=== PATIENT | male | born 1995 | race Caucasian/White ===

== ENCOUNTER 2021-08-15 12:45 | Outpatient (REF) | payer BC, SELFPAY | END 2021-08-15 12:46 | disposition home or self-care (01) | LOC: HO.LAB 12:45 | PROVIDERS: Visit Provider Internal Medicine | DX: Z20.822 Contact with and (suspected) exposure to COVID-19 (principal) | CPT/HCPCS: C9803; U0003; U0005 ==

== ENCOUNTER 2023-04-20 06:07 | Emergency (ER) | payer OTHER, SELFPAY ==
--- NOTE | ~2023-04-20 | XR_ITS ---
EXAMINATION: XR LUMBOSACRAL SPINE CLINICAL INFORMATION: Right leg paresthesia COMPARISON: None available. TECHNIQUE: Three views of the lumbosacral spine. FINDINGS: The vertebral bodies and posterior elements are normal. The disc spaces are preserved and the vertebral alignment is normal. The paraspinal soft tissues are normal. XR/XR lumbar spine 2-3V IMPRESSION: Unremarkable lumbar spine examination.
--- NOTE | 2023-04-20 06:12 | ED.OVERDOSE ---
HPI - Overdose General Chief Complaint: Overdose Stated Complaint: OD Source: patient Mode of arrival: EMS History of Present Illness HPI Narrative: 27-year-old male who arrives via EMS, he reports that he purchased his oxy from the same person that he usually does, states he uses on a regular basis but family found him unresponsive and administered 4 mg of Narcan. He denies any suicidal homicidal ideation, and although he wishes for detox he states that he can not at this time. Related Data Allergies Allergy/AdvReac Type Severity Reaction Status Date / Time No Known Allergies Allergy Unverified 08/09/20 19:14 [No Known Allergies*] Review of Systems Review of Systems: Pertinent positives and negatives as stated in HPI PMFSH Past Medical History Source: nursing notes reviewed Social History Social History Alcohol intake: current Alcohol intake frequency: a few times a week Use of substances other than those prescribed or required for medical reasons: Yes Substance Use Type: Marijuana, Opiates and Painkillers Substance Use Frequency: Daily Advance Directives: No Advance Directives Information Provided: No Physical Exam Vital Signs: Vital Signs: Last Vital Signs Temp 97.6 F 04/20/23 06:22 Pulse 104 H 04/20/23 06:22 Resp 16 04/20/23 06:22 BP 136/86 04/20/23 06:22 Pulse Ox 98 04/20/23 06:22 O2 Del Method Room Air 04/20/23 06:22 BMI result Body Mass Index 24.6 VITAL SIGNS: Reviewed. GENERAL: Well developed, well nourished, in no acute distress. HEAD: Normocephalic/atraumatic EYES: PERRLA, EOMI EARS: Ext canals without abnormality NOSE: Nares patent bilateral OROPHARYNX: no oral lesions noted, posterior pharynx clear NECK: Supple, no adenopathy LUNGS: Normal breath sounds. No adventitious sounds or accessory muscle use. SpO2<98> CARDIOVASCULAR: Regular rate and rhythm without noted murmurs ABDOMEN: Soft, non-tender, non-distended with bowel sounds. MUSCULOSKELETAL: No tenderness, deformities, or effusions noted on gross inspection. EXTREMITIES: No cyanosis, clubbing or edema. SKIN: Inspection of the skin reveals no rashes NEUROLOGIC: Alert and oriented x 4. Strength and sensation to light touch were grossly intact x 4. Medical Decision Making Medical Decision Making MDM Narrative: 27-year-old male with accidental overdose requiring 4 mg of Narcan with good reversal, patient also received 4 mg of Zofran with good result. Patient is tolerating p.o. and will be discharged with home Narcan. Patient placed in physician observation because the patient needed more time for observation and JAK eval. At the time observation was started the patient's vital signs were stable, patient is alert and oriented, neuro: Nonfocal, CV RRR, lungs clear Differential Diagnosis Please see the discussion above Lab Data Please see the discussion above Labs: Lab Results 04/20/23 Range/Units 06:35 Urine Color Yellow Urine Appearance Clear Urine pH 5.5 (5.0-9.0) Ur Specific [place] 1.010 (1.005-1.025) Urine Protein Trace (Neg-Trace) mg/dL Urine Glucose (UA) Negative (Negative) mg/dL Urine Ketones Negative (Negative) mg/dL Urine Blood Negative (Negative) Urine Nitrite Negative (Negative) Ur Leukocyte Esterase Trace H (Negative) Discharge Plan Discharge Clinical Impression: Drug overdose Patient Disposition: Still a Patient Instructions: Adult Overdose (ED) Additional Instructions: Follow-up with primary care provider and return to the ER for any worsening symptoms.
[2023-04-20 06:18] VITALS: BP 136/83; PULSE 113; O2SAT 100
[2023-04-20 06:19] VITALS: BP 136/86; PULSE 104; RESP 16; TEMP 36.4; O2SAT 98; BMI 24.6
[2023-04-20 06:22] VITALS: BP 136/86; PULSE 104; RESP 16; TEMP 36.4; O2SAT 98
--- NOTE | 2023-04-20 06:27 | PC.NURSE ---
Pt presents to ER via EMS. family found pt unresponsive in his car outside of their home. Pt reported he took 60-90mg oxycodone around midnight and does not remember going unresponsive. Pt stated he takes unprescribed oxycodone every day. Pt was also drinking alcohol last night. Family gave 4mg narcan on scene and pt woke up. EMS administered zofran for nausea. Pt presented A&Ox4, GCS 15. Reports no pain or nausea at this time. Pt ambulated to the bathroom with steady gait.
[2023-04-20 06:42] LABS: Appearance Urine Clear; Color Urine Yellow; Glucose Urine UA Negative (Negative); Leukocyte Esterase Urine Trace (Negative); Nitrite Urine Negative (Negative); PH 5.5 (5.0-9.0); UMIC TRIGGER UACC YES; Urine Blood Negative (Negative); Urine Ketones Negative (Negative); Urine Protein Trace mg/dL (Neg-Trace)
[2023-04-20 06:52] LABS: Bacteria Urine None Seen (None Seen); Granular Casts Urine Present; RBC Urine 0-2 /HPF (0-2); UACC Culture Trigger YES
[2023-04-20 06:53] LABS: Amphetamine Screen Urine Not Detected (Not Detect); Barbiturates, Urine Not Detected (Not Detect); Benzodiazepines Screen Urine Not Detected (Not Detect); Cannabinoid Screen Urine Not Detected (Not Detect); Cocaine Screen Urine Not Detected (Not Detect); Fentanyl, urine POSITIVE (Not Detect); Opiate Screen Urine POSITIVE (Not Detect); Phencyclidine Screen Urine Not Detected (Not Detect)
[2023-04-20 10:10] VITALS: BP 134/80; PULSE 79; RESP 18; TEMP 36.8; O2SAT 97
--- NOTE | 2023-04-20 10:38 | HO.ADDICTCON ---
History of Present Illness Date of Service: 04/20/2023 Chief Complaint: OD Reason for Consult: overdose Sources of Information: patient interviewed and chart reviewed Additional Sources of Information: patient's father HPI Narrative: Patient is a 27 year old male who presented to [facility] via ambulance following opioid overdose requiring narcan. Patient seen in room 4 of ED, father present during interview (per patient's request). He reports he has been using 3-4 30mg percocets daily for almost a year now. Percocets are not prescribed, and likely pressed pills as UDS +fentanyl. He reports this is his 2nd overdose, previous one was a little over a year ago, which resulted in inpatient treatment. He was started on bupre and ultimately transitioned over to naltrexone/vivtrol at time of discharge. He states he recieved a total of 2 injections and began to use again shortly after that. Age of first use, 18. Daily use started approx 5 years ago. Identifies alcohol as a major trigger and precipitant to using. Working FT. Supportive family. Lives with his father --who found him this morning and administered narcan. 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 Discussed patients goals regarding current use. He stated that he wants to stop completely . Declines ATS referral for admission. Discussed MOUD, patient interested in restarting suboxone. He felt this medication helped the most with cravings and physical sx of withdrawal. At time of interview patient reporting nausea and anxiety. No other withdrawal sx reported or visible. Still appearing a bit drowsy as his eyes closed a few times during interview. He is c/o numbness and tingling in his right leg. Review of Systems Constitutional: Reports as per HPI Diagnostics Vital Signs (24Hr): Vital Signs - 24 hr 04/20/23 06:19 04/20/23 06:22 04/20/23 10:10 Temperature 97.6 F 97.6 F 98.2 F Pulse Rate 104 H 104 H 79 Respiratory Rate 16 16 18 Blood Pressure 136/86 136/86 134/80 Pulse Oximetry 98 98 97 Oxygen Delivery Method Room Air Room Air Room Air BMI result Body Mass Index 24.6 Labs Labs: Laboratory Results - last 48 hr 04/20/23 04/20/23 06:35 06:35 Urine Color Yellow Urine Appearance Clear Urine pH 5.5 Ur Specific [place] 1.010 Urine Protein Trace Urine Glucose (UA) Negative Urine Ketones Negative Urine Blood Negative Urine Nitrite Negative Ur Leukocyte Esterase Trace H Urine RBC 0-2 Urine WBC 6-10 H Ur Squamous Epith Cells 3-5 Urine Bacteria None Seen Hyaline Casts 11-20 Granular Casts Present Urine Opiates Screen POSITIVE H Urine Fentanyl Screen POSITIVE H Ur Barbiturates Screen Not Detected Ur Phencyclidine Scrn Not Detected Ur Amphetamines Screen Not Detected U Benzodiazepines Scrn Not Detected Urine Cocaine Screen Not Detected U Marijuana (THC) Screen Not Detected Imaging Radiology Impressions: ITS Impressions Lumbar Spine X-Ray 04/20/23 09:00 IMPRESSION: Unremarkable lumbar spine examination. Mental Status Exam Mental Status Exam Patient Appearance: Appropriate Level of Consciousness: Awake and Drowsy (slightly ) Patient Behavior: Cooperative and Anxious Affect Description: Anxious Judgement: Fair Medications Allergies Allergies Allergy/AdvReac Type Severity Reaction Status Date / Time No Known Allergies Allergy Unverified 08/09/20 19:14 [No Known Allergies*] Assessment & Plan Assessment & Plan (1) Opioid use disorder: Status: Acute Code(s): F11.90 - Opioid use, unspecified, uncomplicated Assessment and Plan: suboxone 8mg rx to be sent to pharmacy for 8mg daily appt scheduled at [facility] for intake and continuation of treatment on 04/22 at 2pm take home narcan already ordered father provided with [employer] [place] recovery support overdose prevention reinforced with patient. (2) Drug overdose: Status: Acute Code(s): T50.901A - Poisoning by unspecified drugs, medicaments and biological substances, accidental (unintentional), initial encounter Total time managing care of this patient today ____ minutes. [facility] Social History Social History Alcohol intake: current Alcohol intake frequency: a few times a week Use of substances other than those prescribed or required for medical reasons: Yes Substance Use Type: Marijuana, Opiates and Painkillers Substance Use Frequency: Daily Advance Directives: No Advance Directives Information Provided: No
[2023-04-20] MEDS: Naloxone HCl Nasal TAKE HOME 4 MG SPRAY NOSTRILALT (11:17)
== END 2023-04-20 11:21 | disposition home or self-care (01) ==
PROVIDERS: Student in an Organized Health Care Education/Training Program; Emergency Provider Emergency Medicine
DX: T40.2X1A Poisoning by other opioids, accidental (unintentional), initial encounter (principal); M54.50 Low back pain, unspecified; Y92.9 Unspecified place or not applicable; Z79.899 Other long term (current) drug therapy
CPT/HCPCS: 72100; 80307; 81001; 87086; 99284; 99285

== ENCOUNTER → 2023-04-22 15:17 | Outpatient (BNVA) | payer OTHER, SELFPAY | PROVIDERS: Visit Provider Nurse Practitioner Psychiatric/Mental Health ==

== ENCOUNTER → 2023-04-29 15:29 | Outpatient (BNVA) | payer OTHER, SELFPAY | PROVIDERS: Visit Provider Nurse Practitioner Psychiatric/Mental Health ==

== ENCOUNTER → 2023-05-06 15:16 | Outpatient (BNVA) | payer OTHER, SELFPAY | PROVIDERS: Visit Provider Nurse Practitioner Psychiatric/Mental Health | DX: F11.20 Opioid dependence, uncomplicated (principal); F10.20 Alcohol dependence, uncomplicated; Z79.899 Other long term (current) drug therapy; Z51.81 Encounter for therapeutic drug level monitoring | CPT/HCPCS: 80305 ==

== ENCOUNTER → 2023-05-13 15:13 | Outpatient (BNVA) | payer OTHER, SELFPAY | PROVIDERS: Visit Provider Nurse Practitioner Psychiatric/Mental Health | DX: Z51.81 Encounter for therapeutic drug level monitoring (principal); F10.20 Alcohol dependence, uncomplicated; Z79.899 Other long term (current) drug therapy | CPT/HCPCS: 80305 ==

== ENCOUNTER → 2023-05-18 16:26 | Outpatient (BNVA) | payer OTHER, SELFPAY | PROVIDERS: Visit Provider Nurse Practitioner Psychiatric/Mental Health | DX: Z51.81 Encounter for therapeutic drug level monitoring (principal) ==

== ENCOUNTER 2023-05-29 15:09 | Outpatient (AMB) | payer OTHER, SELFPAY ==
--- NOTE | 2023-05-29 15:14 | MHC.OFFVIS ---
Intake Vital Signs 05/29/23 15:20 BP 114/80 Blood Pressure Location Lt brachial Pulse 84 Pulse Source Pulse Oximeter Pulse Oximetry (%) 96 Oxygen Delivery Method Room Air Intake Visit Reasons: mat visit Intake Note: the patient presents for a sub inj. 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 Patient verbalized understanding Discussed SSRI to address ROSSY sx, patient agreeable. Reviewed dosing, side effects, goals of treatment. [facility] Social History Alcohol intake: current Alcohol intake frequency: a few times a week Substance Use Type: Marijuana, Opiates and Painkillers Review of Systems Const Reports as per HPI and Reports no additional complaints Physical Exam Vital Signs: Last Vital Signs Pulse 84 05/29/23 15:20 BP 114/80 05/29/23 15:20 Pulse Ox 96 05/29/23 15:20 Oxygen Delivery Method Room Air 05/29/23 15:20 Const General: cooperative, healthy appearing, no acute distress and alert Nutritional Appearance: average body habitus Orientation/consciousness: patient oriented x3 Limitations: no limitations Neuro General: patient oriented x3 Psych Appearance: grossly normal Mental Status: mental status grossly normal Speech and movement: Normal speech and movement present Affect: Anxious affect present Attitude: cooperative Thought process: Normal thought process present Thought content: Normal thought content present Insight: Good insight present (Psych) Judgement: Good judgement present (Psych) Office Meds Sublocade ER Performing Provider: Josselin Avila CNP Administered by: Shayna Buckley RN on 05/29/23 16:01 Dose Route Admin Location Lot Number Expiration Date NDC Seismic Survey Assistant 300 mg subcut RLQ [id number] 09/21/24 [address]-8 [employer] Comments: T/W reviewed most common reactions to Sublocade, reviewed if withdrawal s/s experienced, call CCC, can prescribe supplemental films. Reviewed to monitor for intolerable pain, swelling, redness, exudate, heat at INJ site, call the CCC. Pt verbalized understanding. Reviewed aftercare, no heat/ice, no picking at INJ site, to be left alone. Pt verbalized understanding. T/W used Lidocaine at INJ site, pt tolerated injection. Assessment & Plan Assessment & Plan (1) Opioid use disorder: Code(s): F11.90 - Opioid use, unspecified, uncomplicated Plan: tolerated injection follow up 4 weeks lexapro 5mg QD (2) Alcohol use disorder, severe, dependence: Code(s): F10.20 - Alcohol dependence, uncomplicated Plan: continue campral Orders: Orders AMB Buprenorphine Injection - Patient Supplied 05/29/23 F11.90 - Opioid use, unspecified, uncomplicated Medications: New escitalopram oxalate (Lexapro) 5 mg PO DAILY 30 tabs 0RF Coding Level of Care Code Est Pt Level 4 (62507) Diagnoses Opioid use disorder F11.90 Alcohol use disorder, severe, dependence F10.20
[2023-05-29 15:20] VITALS: BP 114/80; PULSE 84; O2SAT 96
== END 2023-05-29 16:06 | disposition home or self-care (01) ==
PROVIDERS: Visit Provider Nurse Practitioner Psychiatric/Mental Health
DX: F11.90 Opioid use, unspecified, uncomplicated (principal); F10.20 Alcohol dependence, uncomplicated
CPT/HCPCS: 99214

== ENCOUNTER → 2023-05-29 15:09 | Outpatient (BNVA) | payer OTHER, SELFPAY | PROVIDERS: Visit Provider Nurse Practitioner Psychiatric/Mental Health | DX: F11.20 Opioid dependence, uncomplicated (principal); F10.20 Alcohol dependence, uncomplicated | CPT/HCPCS: 96372 ==

== ENCOUNTER 2023-07-03 13:11 | Outpatient (AMB) | payer OTHER, SELFPAY ==
--- NOTE | 2023-07-03 13:12 | MHC.OFFVIS ---
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 Expressing some guilt over this--has avoided going to his AA meetings because he was due to get his 2 month chip Reviewed strategies to avoid isolation Tolerating Lexapro. Feels less anxious and not ruminating as much Dose to be increased to 10mg PFSH Social History Alcohol intake: current Alcohol intake frequency: a few times a week Substance Use Type: Marijuana, Opiates and Painkillers Review of Systems Const Reports as per HPI and Reports no additional complaints Physical Exam Vital Signs: Last Vital Signs Pulse 80 07/03/23 13:19 BP 134/82 07/03/23 13:19 Pulse Ox 97 07/03/23 13:19 Oxygen Delivery Method Room Air 07/03/23 13:19 Const General: cooperative, healthy appearing, no acute distress and alert Nutritional Appearance: average body habitus Orientation/consciousness: patient oriented x3 Limitations: no limitations Neuro General: patient oriented x3 Psych Appearance: grossly normal Mental Status: mental status grossly normal Speech and movement: Normal speech and movement present Affect: Anxious affect present Attitude: cooperative Thought process: Normal thought process present Thought content: Normal thought content present Insight: Good insight present (Psych) Judgement: Good judgement present (Psych) Office Meds Sublocade ER Performing Provider: Josselin Avila CNP Administered by: More Glynn RN on 07/03/23 13:58 Dose Route Admin Location Lot Number Expiration Date [place] Rubber Mill Tender 300 mg subcut LLQ [id number] 12/22/24 [address]-9 [employer]. Comments: Pt in for Sublocade, no s/sx of infection, no redness, swelling, warmth or drainage to previous inj site. Pt tolerated inj well, educated on signs and symptoms of infection and encouraged to call office with any questions. Results AMB 14 Panel Urine Drug Screen Urine Marijuana (THC) Negative Last Edit by Raquel Cisneros CMA on 07/03/23 13:21 Urine Cocaine Negative Last Edit by Raquel Cisneros CMA on 07/03/23 13:21 Urine Morphine Negative Last Edit by Raquel Cisneros CMA on 07/03/23 13:21 Urine Methamphetamine Negative Last Edit by Raquel Cisneros CMA on 07/03/23 13:21 Urine Amphetamine Negative Last Edit by Raquel Cisneros CMA on 07/03/23 13:21 Urine Benzodiazepine Negative Last Edit by Raquel Cisneros CMA on 07/03/23 13:21 Urine Barbiturates Negative Last Edit by Raquel Cisneros CMA on 07/03/23 13:21 Urine Methadone Negative Last Edit by Raquel Cisneros CMA on 07/03/23 13:21 Urine Buprenorphine Positive Last Edit by Raquel Cisneros CMA on 07/03/23 13:21 Urine Tricyclic Antidepressant Positive Last Edit by Raquel Cisneros CMA on 07/03/23 13:21 Urine MDMA Negative Last Edit by Raquel Cisneros CMA on 07/03/23 13:21 Urine Oxycodone Negative Last Edit by Raquel Cisneros CMA on 07/03/23 13:21 Urine Phencyclidine Negative Last Edit by Raquel Cisneros CMA on 07/03/23 13:21 Urine Propoxyphene Negative Last Edit by Raquel Cisneros CMA on 07/03/23 13:21 Results Reviewed Results Reviewed: Laboratory Last Values POC Urine Buprenorphine Positive 07/03/23 13:13 POC Urine Morphine Negative 07/03/23 13:13 POC Urine Oxycodone Negative 07/03/23 13:13 POC Urine Methadone Negative 07/03/23 13:13 POC Urine Propoxyphene Negative 07/03/23 13:13 POC Urine Barbiturates Negative 07/03/23 13:13 POC U Tricyclic Antidpr Positive 07/03/23 13:13 POC Urine PCP Negative 07/03/23 13:13 POC Ur Amphetamines Negative 07/03/23 13:13 POC Ur Methamphetamine Negative 07/03/23 13:13 POC Urine MDMA Negative 07/03/23 13:13 POC Ur Benzodiazepine Negative 07/03/23 13:13 POC Urine Cocaine Negative 07/03/23 13:13 POC Ur Marijuana (THC) Negative 07/03/23 13:13 Assessment & Plan Assessment & Plan (1) Opioid use disorder: Code(s): F11.90 - Opioid use, unspecified, uncomplicated Plan: tolerated injection follow up 4 weeks lexapro 10mg QD (2) Alcohol use disorder, severe, dependence: Code(s): F10.20 - Alcohol dependence, uncomplicated Plan: continue campral Orders: Orders AMB Buprenorphine Injection - Patient Supplied Today F11.90 - Opioid use, unspecified, uncomplicated AMB 14 Panel Urine Drug Screen Today Z51.81 - Encounter for therapeutic drug level monitoring Medications: Discontinued escitalopram oxalate (Lexapro) Discontinued Reason: Doctor's Order 5 mg PO DAILY 30 tabs 0RF Coding Level of Care Code Est Pt Level 4 (44938) Diagnoses Opioid use disorder F11.90 Alcohol use disorder, severe, dependence F10.20
[2023-07-03 13:19] VITALS: BP 134/82; PULSE 80; O2SAT 97
== END 2023-07-03 14:28 | disposition home or self-care (01) ==
LOC: HO.HCC 13:11
PROVIDERS: Visit Provider Nurse Practitioner Psychiatric/Mental Health
DX: F11.90 Opioid use, unspecified, uncomplicated (principal); F10.20 Alcohol dependence, uncomplicated; Z51.81 Encounter for therapeutic drug level monitoring
CPT/HCPCS: 99214; Q9992

== ENCOUNTER → 2023-07-03 13:11 | Outpatient (BNVA) | payer OTHER, SELFPAY | PROVIDERS: Visit Provider Nurse Practitioner Psychiatric/Mental Health | DX: F11.20 Opioid dependence, uncomplicated (principal); F10.20 Alcohol dependence, uncomplicated; Z51.81 Encounter for therapeutic drug level monitoring; Z79.899 Other long term (current) drug therapy | CPT/HCPCS: 80305; 96372 ==

== ENCOUNTER 2023-07-31 15:10 | Outpatient (AMB) | payer OTHER, SELFPAY ==
[2023-07-31 15:23] VITALS: BP 120/70; PULSE 73; O2SAT 96
--- NOTE | 2023-07-31 15:26 | A.OFFVIS_ITS ---
Intake Vital Signs 07/31/23 15:23 BP 120/70 Blood Pressure Location Lt radial Position Sitting Pulse 73 Pulse Source Pulse Oximeter Pulse Oximetry (%) 96 Oxygen Delivery Method Room Air Intake Visit Reasons: Sub Inj Allergies No Known Allergies [No Known Allergies*] Allergy (Unverified 07/31/23 15:23) HPI Sub Inj HPI Details Patient presents for follow up Was scheduled to have sublocade injection, however he did nto provide consent for delivery so injection is not here . Poor eye contact, soft spoken, reporting recurrence of use. Alcohol, cocaine and pills (unclear if pressed or not) Reviewed contributing factors to use--alcohol always comes first patient. While he has strong family supports, he does not lean on them regarding substance use. Isolates--reports having difficulty socialzing in a setting that does not include alcohol--does not have peers who do not drink. Patient expressing that he wants to increase visits and is seeking support that is not group based. Open to a cryolite recovery operator. [facility] Social History Alcohol intake: current Alcohol intake frequency: a few times a week Substance Use Type: Marijuana, Opiates and Painkillers Review of Systems Const Reports as per HPI Physical Exam Vital Signs: Last Vital Signs Pulse 73 07/31/23 15:23 BP 120/70 07/31/23 15:23 Pulse Ox 96 07/31/23 15:23 Oxygen Delivery Method Room Air 07/31/23 15:23 Const General: cooperative and comfortable Psych Appearance: well kempt Speech and movement: Clear speech present (soft spoken) Affect: Depressed mood present Attitude: cooperative and Avoids eye contact (attititude/behavior) Thought process: Normal thought process present Thought content: Depressive thoughts present Insight: Good insight present (Psych) Judgement: Fair judgement present (Psych) Assessment & Plan Assessment & Plan (1) Opioid use disorder: Code(s): F11.90 - Opioid use, unspecified, uncomplicated Plan: * restart films * risk reduction and overdose prevention discussion (2) Alcohol use disorder, severe, dependence: Code(s): F10.20 - Alcohol dependence, uncomplicated Plan: * continue campral * follow up one week * referral to cryolite recovery operator to be placed Medications: Changed From buprenorphine-naloxone 8-2 mg (Suboxone) 1 film sublingual DAILY PRN 10 ea 0RF withdrawal symptoms To buprenorphine-naloxone 8-2 mg (Suboxone) 1 film sublingual DAILY 8 ea 0RF Coding Level of Care Code Est Pt Level 4 (41136) Diagnoses Opioid use disorder F11.90 Alcohol use disorder, severe, dependence F10.20
== END 2023-07-31 15:36 | disposition home or self-care (01) ==
PROVIDERS: Visit Provider Nurse Practitioner Psychiatric/Mental Health
DX: F11.90 Opioid use, unspecified, uncomplicated (principal); F10.20 Alcohol dependence, uncomplicated
CPT/HCPCS: 99214

== ENCOUNTER → 2023-07-31 15:10 | Outpatient (BNVA) | payer OTHER, SELFPAY | PROVIDERS: Visit Provider Nurse Practitioner Family | DX: F11.90 Opioid use, unspecified, uncomplicated (principal); Z51.81 Encounter for therapeutic drug level monitoring ==

== ENCOUNTER 2023-08-07 15:17 | Outpatient (AMB) | payer OTHER, SELFPAY ==
--- NOTE | 2023-08-07 15:18 | A.OFFVIS_ITS ---
Intake Vital Signs 08/07/23 15:21 BP 136/78 Blood Pressure Location Lt radial Pulse 68 Pulse Source Pulse Oximeter Pulse Oximetry (%) 95 Oxygen Delivery Method Room Air Comment just had caffeine Intake Visit Reasons: MAT Visit Intake Note: the patient presents for a mat visit Family Physician Required: No Allergies No Known Allergies [No Known Allergies*] Allergy (Unverified 08/07/23 15:23) Do you need a note to return to daycare/school/sports/work: No HPI MAT Visit HPI Details Pt presents for OUD treatment follow up Currently being prescribed Suboxone 8mg QD Denies any side effects related to medication Reports no alcohol or opiates over the last week Meeting with [employer] today here at [facility] Social History Alcohol intake: current Alcohol intake frequency: a few times a week Substance Use Type: Marijuana, Opiates and Painkillers Review of Systems Const Reports as per HPI and Reports no additional complaints Physical Exam Vital Signs: Last Vital Signs Pulse 68 08/07/23 15:21 BP 136/78 08/07/23 15:21 Pulse Ox 95 08/07/23 15:21 Oxygen Delivery Method Room Air 08/07/23 15:21 Const General: cooperative and comfortable Psych Appearance: well kempt Speech and movement: Clear speech present (soft spoken) Affect: Depressed mood present Attitude: cooperative and Avoids eye contact (attititude/behavior) Thought process: Normal thought process present Thought content: Depressive thoughts present Insight: Good insight present (Psych) Judgement: Fair judgement present (Psych) Assessment & Plan Assessment & Plan (1) Opioid use disorder: Code(s): F11.90 - Opioid use, unspecified, uncomplicated Plan: * continue suboxone at current dose * follow up 2 weeks * risk reduction and overdose prevention discussion (2) Alcohol use disorder, severe, dependence: Code(s): F10.20 - Alcohol dependence, uncomplicated Plan: * continue campral Medications: Refilled buprenorphine-naloxone 8-2 mg (Suboxone) 1 film sublingual DAILY 15 ea 0RF Coding Level of Care Code Est Pt Level 3 (01046) Diagnoses Opioid use disorder F11.90 Alcohol use disorder, severe, dependence F10.20
[2023-08-07 15:21] VITALS: BP 136/78; PULSE 68; O2SAT 95
== END 2023-08-07 15:54 | disposition home or self-care (01) ==
LOC: HO.HCC 15:17
PROVIDERS: Visit Provider Nurse Practitioner Psychiatric/Mental Health
DX: F11.90 Opioid use, unspecified, uncomplicated (principal); F10.20 Alcohol dependence, uncomplicated
CPT/HCPCS: 99213

== ENCOUNTER → 2023-08-07 15:17 | Outpatient (BNVA) | payer OTHER, SELFPAY | PROVIDERS: Visit Provider Nurse Practitioner Psychiatric/Mental Health | DX: F11.90 Opioid use, unspecified, uncomplicated (principal); Z51.81 Encounter for therapeutic drug level monitoring ==

== ENCOUNTER 2023-08-20 16:03 | Outpatient (AMB) | payer OTHER, SELFPAY ==
--- NOTE | 2023-08-20 16:04 | MHC.OFFVIS ---
Intake Vital Signs 08/20/23 16:06 BP 126/78 Blood Pressure Location Lt radial Position Sitting Pulse 68 Pulse Source Pulse Oximeter Pulse Oximetry (%) 97 Oxygen Delivery Method Room Air Intake Visit Reasons: MAT Visit Intake Note: The patient presents for a mat visit Bed Rubber Required: No Allergies No Known Allergies [No Known Allergies*] Allergy (Unverified 08/20/23 16:07) Do you need a note to return to daycare/school/sports/work: No HPI MAT Visit HPI Details Patient presents for OUD treatment follow up Currently prescribed Suboxone 8mg QD No issues related to recovery Waiting to hear from chemical recovery operator COUNT INCLUDES [facility] Social History Alcohol intake: current Alcohol intake frequency: a few times a week Substance Use Type: Marijuana, Opiates and Painkillers Review of Systems Const Reports as per HPI and Reports no additional complaints Physical Exam Vital Signs: Last Vital Signs Pulse 68 08/20/23 16:06 BP 126/78 08/20/23 16:06 Pulse Ox 97 08/20/23 16:06 Oxygen Delivery Method Room Air 08/20/23 16:06 Const General: cooperative and comfortable Psych Appearance: well kempt Speech and movement: Clear speech present (soft spoken) Attitude: cooperative Thought process: Normal thought process present Insight: Good insight present (Psych) Judgement: Fair judgement present (Psych) Assessment & Plan Assessment & Plan (1) Opioid use disorder: Code(s): F11.90 - Opioid use, unspecified, uncomplicated Plan: continue suboxone at current dose follow up 2 weeks risk reduction and overdose prevention discussion (2) Alcohol use disorder, severe, dependence: Code(s): F10.20 - Alcohol dependence, uncomplicated Plan: continue campral Medications: Refilled buprenorphine-naloxone 8-2 mg (Suboxone) 1 film sublingual DAILY 22 ea 0RF Coding Level of Care Code Est Pt Level 3 (69229) Diagnoses Opioid use disorder F11.90 Alcohol use disorder, severe, dependence F10.20
[2023-08-20 16:06] VITALS: BP 126/78; PULSE 68; O2SAT 97
== END 2023-08-20 16:36 | disposition home or self-care (01) ==
LOC: HO.HCC 16:03
PROVIDERS: Visit Provider Nurse Practitioner Psychiatric/Mental Health
DX: F11.90 Opioid use, unspecified, uncomplicated (principal); F10.20 Alcohol dependence, uncomplicated
CPT/HCPCS: 99213

== ENCOUNTER → 2023-08-20 16:03 | Outpatient (BNVA) | payer OTHER, SELFPAY | PROVIDERS: Visit Provider Nurse Practitioner Psychiatric/Mental Health | DX: F11.90 Opioid use, unspecified, uncomplicated (principal); Z51.81 Encounter for therapeutic drug level monitoring ==

== ENCOUNTER 2023-09-03 15:00 | Outpatient (AMB) | payer OTHER, SELFPAY ==
--- NOTE | 2023-09-03 15:02 | A.OFFVIS_ITS ---
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 [facility] Social History Alcohol intake: current Alcohol intake frequency: a few times a week Substance Use Type: Marijuana, Opiates and Painkillers Review of Systems Const Reports as per HPI and Reports no additional complaints Physical Exam Vital Signs: Last Vital Signs Pulse 78 09/03/23 15:06 BP 128/70 09/03/23 15:06 Pulse Ox 98 09/03/23 15:06 Oxygen Delivery Method Room Air 09/03/23 15:06 Const General: cooperative and comfortable Psych Appearance: well kempt Speech and movement: Clear speech present (soft spoken) Attitude: cooperative Thought process: Normal thought process present Insight: Good insight present (Psych) Judgement: Fair judgement present (Psych) Assessment & Plan Assessment & Plan (1) Opioid use disorder: Code(s): F11.90 - Opioid use, unspecified, uncomplicated Plan: * continue suboxone at current dose * follow up 2 weeks * risk reduction and overdose prevention discussion (2) Alcohol use disorder, severe, dependence: Code(s): F10.20 - Alcohol dependence, uncomplicated Plan: * continue campral Medications: Refilled buprenorphine-naloxone 8-2 mg (Suboxone) 1 film sublingual DAILY 30 ea 0RF Coding Level of Care Code Est Pt Level 3 (89265) Diagnoses Opioid use disorder F11.90 Alcohol use disorder, severe, dependence F10.20
[2023-09-03 15:06] VITALS: BP 128/70; PULSE 78; O2SAT 98
== END 2023-09-03 15:30 | disposition home or self-care (01) ==
PROVIDERS: Visit Provider Nurse Practitioner Psychiatric/Mental Health
DX: F11.90 Opioid use, unspecified, uncomplicated (principal); F10.20 Alcohol dependence, uncomplicated
CPT/HCPCS: 99213

== ENCOUNTER → 2023-09-03 15:00 | Outpatient (BNVA) | payer OTHER, SELFPAY | PROVIDERS: Visit Provider Nurse Practitioner Psychiatric/Mental Health ==

== ENCOUNTER 2023-09-23 15:58 | Outpatient (AMB) | payer OTHER, SELFPAY ==
--- NOTE | 2023-09-23 15:59 | MHC.OFFVIS ---
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 Discussed importance of self care--including taking breaks from work [facility] Social History Alcohol intake: current Alcohol intake frequency: a few times a week Substance Use Type: Marijuana, Opiates and Painkillers Review of Systems Const Reports as per HPI Physical Exam Vital Signs: Last Vital Signs Pulse 71 09/23/23 16:03 BP 110/68 09/23/23 16:03 Pulse Ox 99 09/23/23 16:03 Oxygen Delivery Method Room Air 09/23/23 16:03 Const General: cooperative and comfortable Psych Appearance: well kempt Speech and movement: Clear speech present (soft spoken) Attitude: cooperative Thought process: Normal thought process present Insight: Good insight present (Psych) Judgement: Fair judgement present (Psych) Assessment & Plan Assessment & Plan (1) Opioid use disorder: Code(s): F11.90 - Opioid use, unspecified, uncomplicated Plan: continue suboxone at current dose relapse prevention discussion follow up 3 weeks Coding Level of Care Code Est Pt Level 3 (79397) Diagnoses Opioid use disorder F11.90
[2023-09-23 16:03] VITALS: BP 110/68; PULSE 71; O2SAT 99
== END 2023-09-23 16:35 | disposition home or self-care (01) ==
PROVIDERS: Visit Provider Nurse Practitioner Psychiatric/Mental Health
DX: F11.90 Opioid use, unspecified, uncomplicated (principal)
CPT/HCPCS: 99213

== ENCOUNTER → 2023-09-23 15:58 | Outpatient (BNVA) | payer OTHER, SELFPAY | PROVIDERS: Visit Provider Nurse Practitioner Psychiatric/Mental Health ==

== ENCOUNTER 2024-01-04 15:05 | Outpatient (AMB) | payer OTHER, SELFPAY ==
[2024-01-04 15:10] VITALS: BP 124/72; PULSE 78; O2SAT 98
--- NOTE | 2024-01-04 15:10 | A.OFFVISCC_ITS ---
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 Allergies No Known Allergies [No Known Allergies*] Allergy (Unverified 01/04/24 15:11) HPI MAT Visit HPI Details Patient presents for OUD treatment follow up and to restablish care Has been using approx 6-10 pressed pills daily Has been reducing use over the last several days Yesterday used 4 pills today plans to take 2 pills Attempted to start suboxone last week, however was worried that he may have precipitated withdrawal as he felt worse within 20 mins of taking the medication Discussed challenges with initiating bupe with pressed pills (fentanyl)--reviewed methods for intitiang, including low dose induction. [facility] Social History Alcohol intake: current Alcohol intake frequency: a few times a week Substance Use Type: Marijuana, Opiates and Painkillers Review of Systems Const Reports as per HPI and Reports difficulty sleeping Psych Reports anxiety Physical Exam Vital Signs: Last Vital Signs Pulse 78 01/04/24 15:10 BP 124/72 01/04/24 15:10 Pulse Ox 98 01/04/24 15:10 Oxygen Delivery Method Room Air 01/04/24 15:10 Psych Speech and movement: Clear speech present Affect: Blunted affect present Attitude: cooperative Insight: Fair insight present (Psych) Judgement: Fair judgement present (Psych) Assessment & Plan Assessment & Plan (1) Opioid use disorder: Code(s): F11.90 - Opioid use, unspecified, uncomplicated Plan: * plan to restart suboxone * follow up one week, or before if he is admitted to [facility] * overdose prevention discussion Medications: New clonidine HCl 0.1 mg PO BID 10 tabs 0RF hydroxyzine HCl 50 mg PO TID PRN 30 tabs 0RF anxiety Coding Level of Care Code Est Pt Level 4 (35737) Diagnoses Opioid use disorder F11.90
== END 2024-01-04 15:47 | disposition home or self-care (01) ==
PROVIDERS: Visit Provider Nurse Practitioner Psychiatric/Mental Health
DX: F11.90 Opioid use, unspecified, uncomplicated (principal)
CPT/HCPCS: 99214

== ENCOUNTER → 2024-01-04 15:05 | Outpatient (BNVA) | payer OTHER, SELFPAY | PROVIDERS: Visit Provider Nurse Practitioner Psychiatric/Mental Health ==